=== PATIENT | female | born 1945 | race Caucasian/White ===

== ENCOUNTER 2017-02-02 02:22 | Emergency (ER) | payer MEDICARE, MEDICAID ==
[~2017-02-02] VITALS: Ht 160 cm; Wt 56.3 kg
[~2017-02-02 02:22] MED LIST: DOCU1CAP39 PO; FERR324T4 PO; MODU550 PO
[2017-02-02 02:37] VITALS: BP 162/72; PULSE 89; RESP 22; TEMP 97.9; O2SAT 97
[2017-02-02] MEDS ORDERED: HYDR-3133 PO (02:55)
[2017-02-02] MEDS ORDERED: PRED20 PO (02:55)
--- NOTE | 2017-02-02 02:56 | PD ---
HPI Chief Complaint: Skin Problem Time Seen by Provider: 02:42 Travel History International Travel<30 days: No Contact w/Intl Traveler<30days: No History of Present Illness HPI This is a 71-year-old female who presents to the emergency department with itching all over her body areas she says that she just said he get rid of the dog one week ago and the dog had fleas. She started to develop flea bites for the past several days but today the itching is been intolerable. The itching is constant, severe, and affecting her arms legs, chest and back area she denies any shortness of breath or lightheadedness or dizziness. PFSH Past Medical History Arthritis: Yes Asthma: No Autoimmune Disease: No Heart Rhythm Problems: No Cancer: No Cardiovascular Problems: No High Cholesterol: No Chemotherapy: No Chest Pain: No Congestive Heart Failure: No COPD: No Cerebrovascular Accident: No Diabetes: No Endocrine: No Gastrointestinal Disorders: Yes (PYLORIC BLOCK, ULCERS) GERD: Yes Genitourinary: No Hiatal Hernia: No Immune Disorder: No Kidney Stones: No Musculoskeletal: No Neurologic: No Psychiatric: No Reproductive: No Respiratory: No Migraines: Yes Radiation Therapy: No Renal Failure: No Sickle Cell Disease: No Sleep Apnea: No Thyroid Disease: Yes Ulcer: Yes Menopausal: Yes Past Surgical History Abdominal Surgery: Yes (,APPENDECTOMY) AICD: No Appendectomy: Yes Arteriovenous Shunt: No Cardiac Surgery: No Ear Surgery: No Endocrine Surgery: Yes (GOITER SURGERY) Eye Surgery: No Gynecologic Surgery: Yes (TUBAL LIGATION,REMOVAL RUPTURED OVARIAN CYST) Insulin Pump: No Joint Replacement: No Oral Surgery: No Pacemaker: No Thoracic Surgery: No Other Surgery: Yes (PARTIAL THYROID) Social History Alcohol Use: No Tobacco Use: No Substance Use: No Allergies-Medications (Allergen,Severity, Reaction): Coded Allergies: Phenergan (Verified Allergy, Severe, SEIZURE ACTIVITY, 12/16/12) Sulfa (Verified Allergy, Intermediate, ABDOMINAL PAIN, 12/16/12) Reported Meds & Prescriptions Reported Meds & Active Scripts Active Reported Colace 100 Mg Cap (Docusate Sodium) 100 Mg Cap 100 Mg PO DAILY Ferrous Sulfate 325 Mg Tab 325 Mg PO BID Moduretic 5-50 (Amiloride/HCTZ) 5 - Tab 1 Tab PO DAILY Review of Systems Except as stated in HPI: all other systems reviewed are Neg Physical Exam Narrative GENERAL:Well appearing, no acute distress SKIN: Discrete excoriated lesions over the bilateral upper extremities, chest and back HEAD: Atraumatic. Normocephalic. EYES: Pupils equal and round. No injection or drainage. ENT: Moist mucous membranes NECK: Trachea midline. CARDIOVASCULAR: Regular rate and rhythm. No murmur appreciated. RESPIRATORY: Clear to auscultation. Breath sounds equal bilaterally. GASTROINTESTINAL: Abdomen soft, non-tender, nondistended. MUSCULOSKELETAL: No obvious deformities. NEUROLOGICAL: Awake and alert. No obvious cranial nerve deficits. Moving all extremities. PSYCHIATRIC: Appropriate mood and affect; insight and judgment normal. Data Data Last Documented VS Vital Signs Date Time Temp Pulse Resp B/P Pulse Ox O2 Delivery O2 Flow Rate FiO2 02/02/17 02:37 97.9 89 22 162/72 97 MDM Medical Decision Making Medical Screen Exam Complete: Yes Emergency Medical Condition: Yes Differential Diagnosis Fleabites, acute allergic reaction, contact dermatitis Narrative Course This is a 71-year-old female who presents to the emergency department with flea bites all over her body that are itchy. She has quite a bit of inflammation and excoriation around the bites. I think she benefit from prednisone and hydroxyzine. Otherwise I think she is appropriate for outpatient therapy. Diagnosis Primary Impression: Flea bite Qualified Code: W57.XXXA - Flea bite, initial encounter Patient Instructions: General Instructions Additional Instructions: If you develop swelling of the throat or coughing a lot, wheezing or trouble breathing, throwing up or having diarrhea, feeling dizzy or passing out, or spreading of your rash return to the emergency room immediately as you may be having a life threatening allergic reaction. Med/Other Pt SpecificInfo: Prescription(s) given Scripts Hydroxyzine HCl 25 Mg Tab25 Mg PO QID PRN (ITCHING) #10 TAB Ref 0 Prov:Melisa Chaves MD 02/02/17 Prednisone 20 Mg Tab40 Mg PO DAILY 4 Days Prov:Melisa Chaves MD 02/02/17 Disposition: 01 DISCHARGE HOME Condition: Stable Melisa Chaves MD Feb 02, 2017 02:56
[2017-02-02] MEDS ORDERED: methylPREDNISolone SOD SUCC 125 MG/2 ML VIAL IM ONE (03:00)
[2017-02-02] MEDS ORDERED: hydrOXYzine HCL 50 MG/ML VIAL IM ONE (03:00)
[2017-02-02] MEDS ORDERED: HYDR12.57 PO (03:32)
[2017-02-02] MEDS ORDERED: VALS1TAB63 PO (03:32)
== END 2017-02-02 03:49 | disposition home or self-care (01) ==
LOC: PHED 02:22
DX: R21 Rash and other nonspecific skin eruption (principal); W57.XXXA Bitten or stung by nonvenomous insect and other nonvenomous arthropods, initial encounter
CPT/HCPCS: 96372; 99284; J2930; J3410

== ENCOUNTER 2017-03-05 05:33 | Emergency (ER) | payer MEDICAID, MEDICARE ==
[~2017-03-05] VITALS: Ht 161.3 cm; Wt 56.9 kg
[~2017-03-05 05:33] MED LIST changes: -DOCU1CAP39 PO; -FERR324T4 PO; +HYDR-3133 PO; +HYDR12.57 PO; -MODU550 PO; +PRED20 PO; +VALS1TAB63 PO
[2017-03-05 05:47] VITALS: BP 178/72; PULSE 88; RESP 18; TEMP 97.7; O2SAT 99
[2017-03-05] MEDS ORDERED: IVER5TAB PO (06:32)
[2017-03-05] MEDS ORDERED: BENA25CA4 PO (06:32)
[2017-03-05] MEDS ORDERED: PERM5CRE TOPICAL (06:32)
--- NOTE | 2017-03-05 06:33 | PD ---
HPI . Pruritic rash Chief Complaint: Skin Problem Time Seen by Provider: 06:04 Travel History International Travel<30 days: No Contact w/Intl Traveler<30days: No Traveled to known affect area: No History of Present Illness HPI This patient presents with a pruritic rash. She has been having problems with this rash for over a month. She states that she was seen here at the onset of the rash and was given a steroid injection. Her Atarax. Her symptoms persisted so she followed up with her primary care physician. She was treated by her PCP with oral steroid taper and an increased dose of Atarax. She states that these medications did not help her at all. She believes that her symptoms are secondary to either fleas aren't allergic reaction to having her house treated for fleas. She states that has been infested with fleas. They have gotten rid of the dog. They have had the house fumigated 5 times. She states that her has had a similar rash but that his rash is not as severe and has resolved. She notes no exacerbating or relieving factors. Her symptoms are severe. PFSH Past Medical History Arthritis: Yes Diminished Hearing: No Gastrointestinal Disorders: Yes (PYLORIC BLOCK, ULCERS) GERD: Yes Headaches: Yes Hypertension: Yes Migraines: Yes Thyroid Disease: Yes Ulcer: Yes Tetanus Vaccination: Unknown Influenza Vaccination: No ?: Not Menopausal: Yes Past Surgical History Abdominal Surgery: Yes (,APPENDECTOMY) Appendectomy: Yes Endocrine Surgery: Yes (GOITER SURGERY) Gynecologic Surgery: Yes (TUBAL LIGATION,REMOVAL RUPTURED OVARIAN CYST) Oral Surgery: No Other Surgery: Yes (PARTIAL THYROID) Social History Alcohol Use: No Tobacco Use: No Substance Use: No Allergies-Medications (Allergen,Severity, Reaction): Coded Allergies: promethazine (Verified Allergy, Severe, SEIZURE ACTIVITY, 03/05/17) sulfamethoxazole (Verified Allergy, Severe, Nausea/Vomiting, 03/05/17) trimethoprim (Verified Allergy, Severe, Nausea/Vomiting, 03/05/17) Reported Meds & Prescriptions Reported Meds & Active Scripts Active Reported Valsartan 40 Mg Tab 20 Mg PO DAILY Hydrochlorothiazide 12.5 Mg Cap 12.5 Mg PO DAILY Review of Systems Except as stated in HPI: all other systems reviewed are Neg Skin: Positive Rash, Positive Itching Physical Exam Narrative GENERAL: Awake and alert and in no acute distress. SKIN: Warm and dry. She has a diffuse rash which is papular and erythematous and associated with crusting and excoriation. HEAD: Atraumatic. Normocephalic. EYES: Pupils equal and round. NECK: Trachea midline. CARDIOVASCULAR: Regular rate and rhythm. RESPIRATORY: No accessory muscle use. MUSCULOSKELETAL: No obvious deformities. No edema. NEUROLOGICAL: Awake and alert. No obvious cranial nerve deficits. Motor grossly within normal limits. Normal speech. PSYCHIATRIC: Appropriate mood and affect; insight and judgment normal. Data Data Last Documented VS Vital Signs Date Time Temp Pulse Resp B/P Pulse Ox O2 Delivery O2 Flow Rate FiO2 03/05/17 05:47 97.7 88 18 178/72 99 Room Air MDM Medical Decision Making Medical Screen Exam Complete: Yes Emergency Medical Condition: Yes Differential Diagnosis The differential diagnosis of the skin rash includes but is not limited to allergic urticaria, scabies, insect bites, contact dermatitis Narrative Course This patient presents with a persistent rash. The rash has the typical appearance of scabies. She will be treated with ivermectin and permethrin. Her itching has been unresponsive to Atarax. She will be treated with Benadryl. Diagnosis Primary Impression: Scabies Patient Instructions: General Instructions, Scabies (DC) Med/Other Pt SpecificInfo: Prescription(s) given Scripts Diphenhydramine HCl (Benadryl Allergy)25 Mg Cap50 Mg PO Q4HR PRN (itching) #30 Prov:Alejandrina Wan MD 03/05/17 Ivermectin 3 Mg Tab12 Mg PO DAILY 5 Days days 1, 2, 8, 9 and 15 Prov:Alejandrina Wan MD 03/05/17 Permethrin Topical 5% 5% Cream1 Applic TOPICAL DAILY 7 Days Ref 0 Prov:Alejandrina Wan MD 03/05/17 Disposition: 01 DISCHARGE HOME Condition: Stable Alejandrina Wan MD Mar 05, 2017 06:33
[2017-03-05] MEDS ORDERED: diphenhydrAMINE HCL 50 MG/ML VIAL IM ONE (06:45)
== END 2017-03-05 07:00 | disposition home or self-care (01) ==
LOC: PHED 05:33
DX: B86 Scabies (principal); I10 Essential (primary) hypertension; E07.9 Disorder of thyroid, unspecified; Z87.39 Personal history of other diseases of the musculoskeletal system and connective tissue; Z87.19 Personal history of other diseases of the digestive system; Z86.69 Personal history of other diseases of the nervous system and sense organs
CPT/HCPCS: 96372; 99284; J1200